=== PATIENT | female | born 2000 | race Caucasian/White ===

== ENCOUNTER 2018-07-31 16:28 | Emergency (ER) | payer BC, OTHER ==
[~2018-07-31] VITALS: Ht 154.9 cm; Wt 53.5 kg
== END 2018-07-31 17:17 | disposition home or self-care (01) ==
LOC: ED 16:28
DX: B35.9 Dermatophytosis, unspecified (principal); L30.9 Dermatitis, unspecified
CPT/HCPCS: 99282

== ENCOUNTER 2018-08-19 17:06 | Emergency (ER) | payer BC ==
[~2018-08-19] VITALS: Ht 154.9 cm; Wt 59.0 kg
--- OUTSIDE RECORDS SUMMARY | ~2018-08-19 | XMS | Clinical Summary ---
Demographics + + + | Address | [address] | | | [place] [address] | + + + | Home Phone | | + + + | Preferred Language | Unknown | + + + | Marital Status | Single | + + + | Cheondoism Affiliation | Unknown | + + + | Race | White | + + + | Ethnic Group | Not or | + + + Author + + + | Author | [facility] | + + + | Organization | [facility] | + + + | Address | Unknown | + + + | Phone | Unavailable | + + + Support + + + + + | Name | Relationship | Address | Phone | + + + + + | SANDY BOWMAN | ECON | [address] | | | | | [place] [address] | | + + + + + Care Team Providers + +------+ + | Care Yacht Builder Name | Role | Phone | + +------+ + | Lydia Mata MD | PP | | + +------+ + Source Comments [facility] is fully live on both [facility] Amb[facility] and [facility] InPatient.[facility] Allergies No Known Allergies Current Medications + + + +---------+------+------+-------+ | Prescription | Sig. | Disp. | Refills | Star | End | Statu | | | | | | t | Date | s | | | | | | Date | | | + + + +---------+------+------+-------+ | albuterol (PROAIR | Inhale 1-2 puffs as | | | | | Activ | | HFA) 90 | needed. | | | | | e | | mcg/actuation | | | | | | | | inhalation HFA | | | | | | | | aerosol inhaler | | | | | | | + + + +---------+------+------+-------+ | testosterone | Inject 50 mg IM | 10 mL | 0 | 06/11 | | Activ | | cypionate 100 mg/mL | every month x 2, | | | 3/20 | | e | | intramuscular oil | then increase to 100 | | | 16 | | | | | mg IM every month. | | | | | | + + + +---------+------+------+-------+ | LUPRON DEPOT-PED, | Inject 11.25 mg into | 1 each | 3 | 12/12 | | Activ | | 3 MONTH, 11.25 mg | the muscle (IM) | | | 3/20 | | e | | intramuscular | every ninety days. | | | 16 | | | | syringe | Indications: Gender | | | | | | | kitIndications: | Dysphoria | | | | | | | Gender Dysphoria | | | | | | | + + + +---------+------+------+-------+ Active Problems + + + | Problem | Noted Date | + + + | Gender dysphoria | 07/01/2015 | + + + Social History + +-------+ +--------+------+ | Tobacco Use | Types | Packs/Day | Years | Date | | | | | Used | | + +-------+ +--------+------+ | Never Smoker | | | | | + +-------+ +--------+------+ + + | Comments: smokeless household | + + + + + | Sex Assigned at | Date Recorded | | | | + + + | Not on file | | + + + Last Filed Vital Signs + + + + | Vital Sign | Reading | Time Taken | + + + + | Blood Pressure | 125/67 | 07/01/2015 9:14 AM PDT | + + + + | Pulse | 85 | 07/01/2015 9:14 AM PDT | + + + + | Temperature | - | - | + + + + | Respiratory Rate | - | - | + + + + | Oxygen Saturation | - | - | + + + + | Inhaled Oxygen | - | - | | Concentration | | | + + + + | Weight | 50.7 kg (111 lb 12.4 | 07/01/2015 9:14 AM PDT | | | oz) | | + + + + | Height | 154.5 cm (5' 0.83") | 07/01/2015 9:14 AM PDT | + + + + | Body Mass Index | 21.24 | 07/01/2015 9:14 AM PDT | + + + + Plan of Treatment + + + + + | Health Maintenance | Due Date | Last Done | Comments | + + + + + | Influenza (Flu) | | | | | vaccination (Season | 9 | | | | Ended) | | | | + + + + + Results Not on filefrom Last 3 Months Insurance + +--------+ +--------+-------+---------+ | Payer | Benefi | Subscriber | Type | Phone | Address | | | t Plan | ID | | | | | | / | | | | | | | Group | | | | | + +--------+ +--------+-------+---------+ | [employer] | [employer] | xxxxxxxx | Medica | | | | | TRILLI | | id | | | | | UM | | | | | | | COMMUN | | | | | | | ITY | | | | | + +--------+ +--------+-------+---------+ + +--------+ +--------+ + + | Guarantor Name | Accoun | Relation to | Date | Phone | Billing Address | | | t Type | Patient | of | | | | | | | | | | + +--------+ +--------+ + + | SANDY BOWMAN | Person | Mother | [birth year] | Home: | [address] | | | al/Fam | | 1974 | [phone] | [place] [address] | | | jocelynn | | | [phone] | | + +--------+ +--------+ + +
--- OUTSIDE RECORDS SUMMARY | ~2018-08-19 | XMS | Clinical Summary ---
Demographics + + + | Address | [address] | | | [place] [address] | + + + | Home Phone | | + + + | Preferred Language | Unknown | + + + | Marital Status | Single | + + + | Spiritism Affiliation | Unknown | + + + [...] | | | | | [place] [address] | | + + + + + Care Team Providers + +------+ + | Care Manager Winter Name | Role | Phone | + +------+ + | Lydia Mata MD | PP | | + +------+ + Source Comments [facility] is fully live on both [facility] Ambulatory and [facility] InPatient.[facility] Allergies No Known Allergies Current Medications + [...] | | | + +--------+ +--------+-------+---------+ | PSYCH ASSISTANT MEDICAID | PSYCH ASSISTANT | xxxxxxxx | Medica | | | [...] | 1974 | [phone] | [place] [address] | | | jocelynn | | | [phone] | | + +--------+ +--------+ + +
--- OUTSIDE RECORDS SUMMARY | 2018-08-19 17:08 | XMS ---
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 Noé VISIT COUNT (12 MO.) 2 [facility] TOTAL 2 NOTE: Visits indicate total known visits. ED/UCC VISIT TRACKING (12 MO.) 08/19/2018 17:06 [facility] [place] TYPE: Emergency COMPLAINT: - RASH 07/31/2018 16:29 [facility] [place] TYPE: Emergency COMPLAINT: - RASH DIAGNOSES: - Dermatitis, unspecified - Dermatophytosis, unspecified - Rash and other nonspecific skin eruption INPATIENT VISIT TRACKING (12 MO.) No inpatient visits to display in this time frame [id number]
[2018-08-19] MEDS ORDERED: BENADRYL25 MG PO (17:16)
[2018-08-19] MEDS ORDERED: PREDNISONE20 MG PO (17:36)
== END 2018-08-19 17:49 | disposition home or self-care (01) ==
LOC: ED 17:06
DX: R21 Rash and other nonspecific skin eruption (principal); Z00.8 Encounter for other general examination
CPT/HCPCS: 99282; J7512

== ENCOUNTER 2022-06-24 13:43 | Emergency (ER) | payer OTHER ==
[~2022-06-24] VITALS: Ht 154.9 cm; Wt 66.8 kg
[~2022-06-24 13:43] MED LIST: BENADRYL25 MG PO; PREDNISONE20 MG PO
== END 2022-06-24 14:32 | disposition home or self-care (01) ==
LOC: ED 13:43
DX: T22.112A Burn of first degree of left forearm, initial encounter (principal); T31.0 Burns involving less than 10% of body surface; X19.XXXA Contact with other heat and hot substances, initial encounter
CPT/HCPCS: 99283; A9270

== ENCOUNTER 2023-03-09 11:20 | Emergency (ER) | payer OTHER ==
[~2023-03-09] VITALS: Ht 154.9 cm; Wt 63.9 kg
[2023-03-09] MEDS ORDERED: OLANZAPINE10 MG PO (11:54)
[2023-03-09 12:00] VITALS: BP 136/78
== END 2023-03-09 12:01 | disposition home or self-care (01) ==
LOC: ED 11:20
DX: Z76.0 Encounter for issue of repeat prescription (principal)
CPT/HCPCS: 99281